=== PATIENT | female | born 1960 | race American Indian/Alaskan Native ===

== ENCOUNTER 2016-11-13 14:09 | Outpatient (CLI) | payer BC ==
--- NOTE | 2016-11-15 10:41 | Mammography Report ---
BILATERAL DIGITAL SCREENING MAMMOGRAM WITH CAD. Comparison study is dated November 12, 2015. FINDINGS: The breast parenchyma is heterogeneously dense. A new ovoid shaped low density nodular asymmetry is seen in the left breast at approximately 9:30 position. There is no architectural distortion. No suspicious calcifications are seen. IMPRESSION: Left parenchymal asymmetry. BI-RADS CATEGORY: 0 = Needs additional imaging evaluation ACR BI-RADS MAMMOGRAPHIC CODES: 0 = Needs additional imaging evaluation; 1 = Negative; 2 = Benign; 3 = Probably benign; 4 = Suspicious; 5 = Malignant; 6 = Known biopsy-proven malignancy COMMENT: 1. Dense breast tissue, i.e., adenosis, fibrocystic changes, etc., may obscure an underlying neoplasm. 2. Approximately 10% of cancers are not detected with mammography. 3. A negative mammography report should not delay biopsy if a clinically suspicious mass is present. RECOMMENDATION: Spot compression images and ultrasound if needed. COMMENT: Patient follow-up letters are generated by [employer].
== END 2016-11-13 14:10 | disposition home or self-care (01) ==
LOC: MAMMO 14:09
PROVIDERS: ATTEND Obstetrics & Gynecology
DX: Z12.31 Encounter for screening mammogram for malignant neoplasm of breast (principal)
CPT/HCPCS: 77067; G0202

== ENCOUNTER 2016-12-08 09:52 | Outpatient (CLI) | payer BC ==
--- NOTE | 2016-12-08 11:06 | Mammography Report ---
Left mammogram and left breast ultrasound: Additional compression imaging of the left breast does appear to confirm the presence of a minimally ovoid shaped, well circumscribed, noncalcified nodule measuring approximately 7 mm located in the medial breast. Ultrasound of the breast identifies what appears to be a small cyst at 11:00 measuring 3.5 mm. No other significant finding. Impression: Probably benign left breast nodule. Recommendation: Repeat mammogram in 6 months and possible ultrasound. The findings and recommendations discussed with the patient. BI-RADS CATEGORY: 3 = Probably benign ACR BI-RADS MAMMOGRAPHIC CODES: 0 = Needs additional imaging evaluation; 1 = Negative; 2 = Benign; 3 = Probably benign; 4 = Suspicious; 5 = Malignant; 6 = Known biopsy-proven malignancy COMMENT: 1. Dense breast tissue, i.e., adenosis, fibrocystic changes, etc., may obscure an underlying neoplasm. 2. Approximately 10% of cancers are not detected with mammography. 3. A negative mammography report should not delay biopsy if a clinically suspicious mass is present.
== END 2016-12-08 09:53 | disposition home or self-care (01) ==
LOC: MAMMO 09:52
PROVIDERS: ATTEND Obstetrics & Gynecology
DX: N63 Unspecified lump in breast (principal)
CPT/HCPCS: 76642; G0206

== ENCOUNTER 2017-06-04 09:05 | Outpatient (CLI) | payer BC ==
--- NOTE | 2017-06-04 10:12 | Mammography Report ---
LEFT DIGITAL DIAGNOSTIC MAMMOGRAM : 06/04/17 09:05:00 CLINICAL: Recalled for asymmetry. COMPARISON:12/08/16 screening FINDINGS: Routine views demonstrate a heterogeneously dense breast, which may obscure small masses. No mass, architectural distortion or suspicious calcifications. The previous asymmetry is no longer identified. IMPRESSION: Negative Mammogram. BI-RADS CATEGORY: 1 -- Negative RECOMMENDATION: Return to routine mammographic screening. ACR BI-RADS MAMMOGRAPHIC CODES: 0 = Needs additional imaging evaluation; 1 = Negative; 2 = Benign; 3 = Probably benign; 4 = Suspicious; 5 = Malignant; 6 = Known biopsy-proven malignancy COMMENT: 1. Dense breast tissue, i.e., adenosis, fibrocystic changes, etc., may obscure an underlying neoplasm. 2. Approximately 10% of cancers are not detected with mammography. 3. A negative mammography report should not delay biopsy if a clinically suspicious mass is present. COMMENT: Patient follow-up letters are generated via our [employer] application.
== END 2017-06-04 09:06 | disposition home or self-care (01) ==
LOC: MAMMO 09:05
PROVIDERS: ATTEND Obstetrics & Gynecology
DX: R92.2 Inconclusive mammogram (principal)
CPT/HCPCS: G0206-LT

== ENCOUNTER 2017-10-26 11:38 | Outpatient (CLI) | payer BC, OTHER ==
--- NOTE | 2017-10-26 13:09 | Mammography Report ---
BILATERAL MAMMOGRAM: FINDINGS: The breast tissue is heterogeneously dense, which could obscure detection of small masses (approximately 50%-75% glandular). No mass, distortion, suspicious calcification, or skin change is seen. No interval change identified when compared to prior exam in 2016. CAD was utilized. IMPRESSION: Negative mammogram. There is no mammographic evidence of malignancy. RECOMMENDATION: Follow-up per ACS guidelines. BI-RADS CATEGORY: 1 = Negative ACR BI-RADS MAMMOGRAPHIC CODES: 0 = Needs additional imaging evaluation; 1 = Negative; 2 = Benign; 3 = Probably benign; 4 = Suspicious; 5 = Malignant; 6 = Known biopsy-proven malignancy COMMENT: 1. Dense breast tissue, i.e., adenosis, fibrocystic changes, etc., may obscure an underlying neoplasm. 2. Approximately 10% of cancers are not detected with mammography. 3. A negative mammography report should not delay biopsy if a clinically suspicious mass is present. COMMENT: Patient follow-up letters are generated in [employer].
== END 2017-10-26 11:39 | disposition home or self-care (01) ==
LOC: MAMMO 11:38
PROVIDERS: ATTEND Obstetrics & Gynecology
DX: Z12.31 Encounter for screening mammogram for malignant neoplasm of breast (principal)
CPT/HCPCS: 77067